=== PATIENT | female | born 2005 | race Two or more races ===

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

== ENCOUNTER 2025-02-16 18:39 | Emergency (ER) | payer MEDICAID ==
[~2025-02-16] VITALS: Ht 160 cm; Wt 50.0 kg
[2025-02-16 18:42] VITALS: O2SAT 100
[2025-02-16 18:48] VITALS: BP 135/103; PULSE 107; RESP 16; TEMP 36.8; O2SAT 98
[2025-02-16 20:30] LABS: HEMATOCRIT. 42.8 % (42.0-52.0); HEMOGLOBIN. 13.7 g/dL (14.0-18.0); MEAN CORPUSCULAR HEMOGLOBIN 26.2 pg (28.0-32.0); MEAN CORPUSCULAR VOLUME 81.8 fL (80.0-94.0); MEAN PLATELET VOLUME 7.7 fl (7.4-10.4); PLATELET 284 x1000/uL (130-400); RED BLOOD CELL COUNT 5.23 mill/uL (4.7-6.1); RED CELL DISTRIBUTION WIDTH 14.4 % (11.6-14.6); WHITE BLOOD COUNT 17.9 x1000/uL (4.5-11.0)
[2025-02-16 20:33] LABS: DIFFERENTIAL COMMENT 1
[2025-02-16 20:38] LABS: CHLORIDE 107 mEq/L (98-107); POTASSIUM 3.3 mEq/L (3.5-5.1); SODIUM 140 mEq/L (136-145)
[2025-02-16 20:39] LABS: CALCIUM 9.6 mg/dL (8.7-10.4); CARBON DIOXIDE 23 mEq/L (21-32)
[2025-02-16 20:44] LABS: CREATININE 0.9 mg/dL (0.6-1.3); GLUCOSE 118 mg/dL (70-105); UREA NITROGEN BLOOD 8 mg/dL (9-23)
[2025-02-16 20:59] LABS: PLATELET ESTIMATE NORMAL
[2025-02-16] MEDS: METOCLOPRAMIDE HCL 10MG TABLET PO ONE (21:13)
[2025-02-16] MEDS: ACETAMINOPHEN 500MG TABLET PO ONE (21:13)
[2025-02-16] MEDS ORDERED: NAPR-1176 MT (23:24)
[2025-02-16] MEDS: KETOROLAC 15MG/ML VIAL IM ONE (23:35)
== END 2025-02-16 23:43 | disposition home or self-care (01) ==
LOC: ER 18:39
DX: S09.90XA Unspecified injury of head, initial encounter (principal); S80.211A Abrasion, right knee, initial encounter; S80.212A Abrasion, left knee, initial encounter; E87.6 Hypokalemia; Z98.890 Other specified postprocedural states; X58.XXXA Exposure to other specified factors, initial encounter; Y93.89 Activity, other specified; Y92.89 Other specified places as the place of occurrence of the external cause; Y99.8 Other external cause status
CPT/HCPCS: 99285; 70450; 71045; 80048; 85025; 36415; 96372; J1885; J8597